=== PATIENT | male | born 1955 | race Two or more races ===

== ENCOUNTER → 2019-10-13 | Outpatient (CLI) | payer MEDICAID | END | disposition home or self-care (01) | LOC: Rad HDHVI 09:58 | PROVIDERS: ATTEND Internal Medicine | DX: I49.9 Cardiac arrhythmia, unspecified (principal); I10 Essential (primary) hypertension | CPT/HCPCS: 93306 ==

== ENCOUNTER → 2019-10-17 | Outpatient (CLI) | payer MEDICAID | END | disposition home or self-care (01) | LOC: Rad HDHVI 07:56 | PROVIDERS: ATTEND Internal Medicine | DX: I65.21 Occlusion and stenosis of right carotid artery (principal) | CPT/HCPCS: 93880 ==

== ENCOUNTER → 2019-10-18 | Outpatient (CLI) | payer MEDICAID ==
[~2019-10-18] VITALS: Ht 175.3 cm; Wt 79.4 kg
[~2019-10-18] MED LIST: ADENOSINE 67 MG in GIVE UN-DILUTED 0 ML IV ONE; ADENOSINE 90 MG/30 ML INJ IV ONE
== END | disposition home or self-care (01) ==
LOC: Rad HDHVI 09:00
PROVIDERS: ATTEND Internal Medicine
DX: I10 Essential (primary) hypertension (principal); E78.5 Hyperlipidemia, unspecified; R07.9 Chest pain, unspecified; R42 Dizziness and giddiness
CPT/HCPCS: 78452; 93005; 96374; 96375; A9500; J0153

== ENCOUNTER → 2020-02-02 | Outpatient (CLI) | payer MEDICAID ==
[~2020-02-02] MED LIST changes: -ADENOSINE 67 MG in GIVE UN-DILUTED 0 ML IV ONE; -ADENOSINE 90 MG/30 ML INJ IV ONE; +IOHEXOL 350 MG/ML 100ML IJ ONE; +SODIUM CHLORIDE 0.9% 250 ML IV ONE
[2020-02-02 09:22] VITALS: BP 138/85
--- NOTE | 2020-02-02 09:22 | NUR ---
PT ARRIVED TO [facility] PT ARRIVED TO [facility] FOR SCHEDULED EXAM. PT IS ALERT, AWAKE, AND AMBULATORY. PT IS ON ROOM AIR WITH EVEN AND UNLABORED RESPIRATIONS. NO S/SO IF DISTRESS/SOB OR PAIN AT THIS TIME. WILL CARRY OUT MD ORDERS. WILL CONTINUE TO MONITOR.
--- NOTE | 2020-02-02 09:38 | NUR ---
IV insertion IV access obtained BY MARIA FERNANDA ROBERTSON, via clean sterile technique by inserting [20] gauge catheter at [LFA] after [1] attempt(s). IV secured properly. No trauma to site. Patient tolerated procedure well.
--- NOTE | 2020-02-02 11:50 | NUR ---
PT BACK TO CT FOR EXAM. PT IS ALERT, AWAKE AND AMBULATORY WITH EVEN AND UNLABORED RESPIRATIONS. NO S/S OF DISTRESS/SOB NOTED. WILL AWAIT RETURN.
--- NOTE | 2020-02-02 12:02 | NUR ---
PT RETURNED BACK TO [facility] FROM [facility]. PT IS ALERT, AWAKE AND AMBULATORY WITH EVEN AND UNLABORED RESPIRATIONS. NO S/S OF DISTRESS/SOB NOTED. VSS. WILL CARRY OUT D/C.
[2020-02-02 12:15] VITALS: BP 152/78
--- NOTE | 2020-02-02 12:15 | NUR ---
[facility] Discharge Instructions See e-MAR for any mediations given with this visit. Patient education given on disease process. Patient verbalized understanding. Previous labs reviewed. Patient discharged in stable condition with after care instructions and follow up appointment. NOTES NS 250 ML IV BOLUS X1 [id number], ADMIN BY MARIA FERNANDA ROBERTSON PT EDUCATED TO INCREASE ORAL HYDRATION OF THE NEXT 24 HOURS. PT VERBALIZED UNDERSTANDING.
== END | disposition home or self-care (01) ==
LOC: Rad HDHVI 09:02
PROVIDERS: ATTEND Internal Medicine
DX: R07.89 Other chest pain (principal); M25.512 Pain in left shoulder; R94.4 Abnormal results of kidney function studies
CPT/HCPCS: 36415; 71250; 73200; 82565; G0463; J7050; Q9967; 96360